=== PATIENT | female | born 1980 ===

== ENCOUNTER 2022-10-29 19:06 | Emergency (ER) | payer SELFPAY ==
--- NOTE | 2022-10-29 19:34 | PC.NURSE ---
Pt states she is leaving at this time to get her phone from home. ambulatory
== END 2022-10-29 19:34 | disposition left against medical advice (07) ==
LOC: ANHED 19:45
DX: Z53.21 Procedure and treatment not carried out due to patient leaving prior to being seen by health care provider (principal)
CPT/HCPCS: 99199

== ENCOUNTER 2022-10-29 20:33 | Emergency (ER) | payer SELFPAY ==
--- NOTE | 2022-10-29 20:43 | PC.NURSE ---
Pt called for triage, no answer
--- NOTE | 2022-10-29 20:54 | PC.NURSE ---
Pt called for triage, no answer
== END 2022-10-29 21:22 | disposition left against medical advice (07) ==
LOC: ANHED 20:59
DX: Z53.21 Procedure and treatment not carried out due to patient leaving prior to being seen by health care provider (principal)
CPT/HCPCS: 99199